=== PATIENT | male | born 1945 | race Caucasian/White ===

== ENCOUNTER → 2020-01-15 | Outpatient (CLI) | payer MEDICARE, BC ==
[~2020-01-15] MED LIST: ACTOS 45MG45 MG/TAB PO; ASPIRIN E.C. 8181 MG PO; CELEXA 20MG20 MG/TAB PO; EPA FISH OIL1000 MG PO; FLOMAX 0.40.4 MG/CAP PO; GLUCOPHAGE1000 MG PO; GLUCOTROL XL2.5 MG PO; MACROBID 1100 MG/CAP PO; NIFEDIPINE ER30 MG PO; NORCO 325 MG-51 TAB PO; PRIL40 PO; PROCARDIA XL 3030 MG PO; PYRIDIUM200 M1 PO; STOOL SOFTENER100 M2 PO; ZESTRIL 20MG TA20 MG PO; ZOCOR 40MG40 MG PO
== END ==
LOC: COL.RAD 13:42
DX: Z01.812 Encounter for preprocedural laboratory examination (principal); M48.061 Spinal stenosis, lumbar region without neurogenic claudication; E11.42 Type 2 diabetes mellitus with diabetic polyneuropathy; Z98.890 Other specified postprocedural states
CPT/HCPCS: A9585

== ENCOUNTER → 2024-01-12 | Outpatient (CLI) | payer MEDICARE, BC | LOC: COL.RAD 07:24 | DX: N28.1 Cyst of kidney, acquired (principal); I70.0 Atherosclerosis of aorta; M47.816 Spondylosis without myelopathy or radiculopathy, lumbar region ==